=== PATIENT | male | born 1990 | race Hispanic/Latino ===

== ENCOUNTER → 2018-02-14 | Day surgery (SDC) | payer OTHER ==
[~2018-02-14] MED LIST: Bupivacaine HCl 0.5%/Epinephrine 1:200,000/PF 30 ml Vial ONE; Ciprofloxacin 0.2% Otic ONE; Dexamethasone 20 MG/5 ML VIAL ONE; Famotidine/PF 20 mg/2ml Vial ONE; Fentanyl 100 MCG/2 ML VIAL ONE; HYDROmorphone 0.5 MG/0.5 ML SYRINGE ONE; Ketorolac Tromethamine 30 MG/ML VIAL ONE; Lidocaine 1% PF 5 ML VIAL ONE; Midazolam HCl 2 mg/2 ml Vial ONE; Morphine 5 MG/ML SYRINGE ONE; Ondansetron HCl/PF 4 MG/2 ML Vial ONE; PROPOFOL 200 MG/20 ML VIAL ONE; Piperacillin/Tazobactam 4.5 GM VIAL ONE; Sodium Chloride 0.9% 100 ML ONE; Succinylcholine Chloride 20 MG/ML 10 ml SYRINGE FS ONE
[2018-02-14 15:34] LABS: #Basophils 0.1 thou/uL (0.0-0.2); #Lymphocytes 1.5 thou/uL (1.20-3.40); #Monocytes 0.9 thou/uL (0.11-0.59); #Neutrophils 13.9 thou/uL (1.40-6.50); %Basophils 0.4 % (0.0-1.0); %Eosinophils 0.1 % (0.0-10.0); %Lymphocytes 9.4 % (21.0-51.0); %Monocytes 5.4 % (0.0-10.0); %Neutrophils 84.8 % (42.0-75.0); Hemoglobin 15.3 g/dL (14.0-18.0); Mean Corpuscular HGB CONC 33.7 g/dL (32.0-36.0); Mean Corpuscular Hemoglobin 27.1 pg (27.0-31.0); Mean Corpuscular Volume 80.5 fL (78.0-98.0); Mean Platelet Volume 8.1 fL (7.4-10.4); Platelet Count 224 thou/uL (130-400); RBC Distribution Width 12.5 % (11.5-14.5); Red Blood Cell (RBC) Count 5.62 mill/uL (4.70-6.10); White Blood Cell (WBC) Count 16.3 thou/uL (4.8-10.8)
[2018-02-14 15:43] LABS: ALT (SGPT) 80 U/L (8-55); AST (SGOT) 36 U/L (5-34); Albumin 4.6 g/dL (3.5-5.0); Alkaline Phosphatase 103 U/L (40-150); Anion Gap 17 mmol/L (10-20); BUN (Urea Nitrogen) 12 mg/dL (8.9-20.6); Bilirubin, Total 0.5 mg/dL (0.2-1.2); Calc. Creatinine Clearance 0 mL/min (70-130); Calcium 9.4 mg/dL (7.8-10.44); Carbon Dioxide 19 mmol/L (22-29); Chloride 103 mmol/L (98-107); Estimated GFR-MDRD Greater than 90; Glucose 100 mg/dL (70-105); Lipase 17 U/L (8-78); Potassium 3.9 mmol/L (3.5-5.1); Protein, Total 7.6 g/dL (6.0-8.3); Sodium 135 mmol/L (136-145)
--- NOTE | 2018-02-14 16:18 | CT ---
CT ABDOMEN AND PELVIS WITH CONTRAST: Comparison: None. History: Lower abdominal pain that started this morning after eating. Technique: Multiple contiguous axial images were obtained in a CT of the abdomen and pelvis with cont rast. Coronal reformats were performed. FINDINGS: The liver, gallbladder, kidneys, adrenal glands, spleen and pancreas are unremarkable. No free air, f ree fluid, or stranding changes are seen in the abdomen or pelvis. The large and small bowel are unremarkable. The appendix is enlarged measuring 11 mm and there is str anding change adjacent to the tip of the appendix. These findings are consistent with early acute sissy endicitis. No free air or free fluid are seen in the abdomen or pelvis. There are a few mildly enlarg ed ileocecal lymph nodes. The small bowel and colon are unremarkable. No abdominal or pelvic lymphadenopathy are seen. The osseous structures, visualized inferior thorax a nd abdominal wall soft tissues are unremarkable. IMPRESSION: Acute appendicitis. POS: DOC
[2018-02-14 16:36] LABS: Bilirubin Negative (Negative); Blood, Urine Negative (Negative); Clarity Clear (Clear); Glucose, Urine (Dipstick) Negative (Negative); Leukocyte Negative (Negative); Nitrite Negative (Negative); Protein, Urine (Dipstick) Negative (Neg-Trace); Urobilinogen 0.2 mg/dL (0.2-1.0); pH, Urine 6.5 (5.0-9.0)
[2018-02-14 16:37] LABS: Specific Gravity, Urine 1.031 (1.002-1.036)
--- NOTE | 2018-02-15 04:42 | OP ---
PREOPERATIVE DIAGNOSIS: Acute appendicitis. POSTOPERATIVE DIAGNOSIS: Acute appendicitis. PROCEDURE PERFORMED: Laparoscopic video appendectomy. SURGEON: Mike Chapman M.D. ANESTHESIA: General. Local 0.5% Marcaine with epinephrine, 30 mL DESCRIPTION OF PROCEDURE: The patient was taken to the operating room where under general anesthesia , Charles catheter was placed at the beginning of the procedure and removed at the end. Abdomen clippe d of hair, prepared with ChloraPrep, draped in routine fashion. Local anesthetic infiltrated into sk in and subcutaneous tissue about each port site. Infraumbilical incision made. Pneumoperitoneum to 15 mmHg obtained with the Veress needle, replacing it with a 5-port laparoscope inserted. Suprapubic incision made and a 12-port placed. Right lateral subcostal incision made and a 5-port placed. Asaf endix was acutely inflamed and mesoappendix taken down the stump of the appendix divided with Endo-GI A blue load stapler. Stapled cecal stump was hemostatic and secure. Good hemostasis noted and obtai orestes with the LigaSure. Suprapubic fascia approximated with 0 Vicryl GraNee needle. Irrigant and pne umoperitoneum evacuated. All instruments removed and all skin incisions approximated with interrupte d subdermal 4-0 Monocryl and DermaGlue applied. The patient tolerated the procedure well.
== END ==
LOC: SCSER 14:50 → ERS 18:05
PROVIDERS: ATTEND Specialist
PROC: 0DTJ4ZZ Resection of Appendix, Percutaneous Endoscopic Approach (ICD-10-PCS; principal; 2018-02-14)
DX: K35.80 Unspecified acute appendicitis (principal)
CPT/HCPCS: 36415; 74177; 80053; 81003; 83690; 85025; 88304; 96361; 96374; 96375; J2270; J0131; J0670; J1100; J1170; J1885; J2001; J2250; J2405; J2543; J2704; J3010; J7050; S0028

== ENCOUNTER 2018-06-21 07:26 | Outpatient (CLI) | payer OTHER ==
--- NOTE | 2018-06-21 09:29 | ULT ---
SCROTAL ULTRASOUND INCLUDING COLOR AND SPECTRAL DOPPLER IMAGING: Date: 06/21/18 HISTORY: Achy, painful left testis for years, becoming worse and more frequent. FINDINGS: Right testis measures 4.5 x 3.2 x 2.4 cm. Left testis measures 4.4 x 3.1 x 2.2 cm. The epididymal reg ions are unremarkable. No hydrocele. Vascular duplex demonstrates arterial inflow and venous outflow. No evidence for ovarian torsion. IMPRESSION: Normal scrotal ultrasound. No intratesticular mass or evidence for hydrocele or torsion. POS: NICCI
== END 2018-06-21 07:27 | disposition home or self-care (01) ==
LOC: SCSULT 07:26
PROVIDERS: ATTEND Nurse Practitioner Family
DX: N50.82 Scrotal pain (principal)
CPT/HCPCS: 76870; 93976

== ENCOUNTER 2019-04-04 07:18 | Outpatient (CLI) | payer OTHER ==
--- NOTE | 2019-04-04 09:07 | ULT ---
ABDOMINAL ULTRASOUND HISTORY: Abnormal test results FINDINGS: Liver: Increased in echogenicity suggesting fatty infiltration. No focal hepatic lesion is seen. Gallbladder: No gallbladder calculi are visualized. There is no gallbladder wall thickening or perich olecystic fluid. Common duct: Common duct is normal in caliber measuring 0.2 cm in diameter. Pancreas: Mostly obscured by shadowing from bowel gas but where visualized demonstrates a grossly nor mal sonographic appearance. IVC: Limited visualized IVC has a normal sonographic appearance. Aorta: Not well assessed on this examination and mostly obscured by bowel gas. Spleen: Enlarged in craniocaudal dimensions measuring 14.3 cm. Kidneys: Kidneys demonstrate a normal sonographic appearance bilaterally with the right kidney measur ing 10.6 cm in length, and the left kidney measures 12.1 cm in length. IMPRESSION: 1. Fatty infiltration of the liver. 2. Mild splenomegaly. 3. No gallbladder calculi are seen, and the common duct is normal in caliber.
== END 2019-04-04 07:19 | disposition home or self-care (01) ==
LOC: ULT 07:18
PROVIDERS: ATTEND Internal Medicine
DX: R94.5 Abnormal results of liver function studies (principal); K76.0 Fatty (change of) liver, not elsewhere classified; R16.1 Splenomegaly, not elsewhere classified
CPT/HCPCS: 76700

== ENCOUNTER 2020-11-29 21:36 | Observation (INO) | payer OTHER ==
[~2020-11-29 21:36] MED LIST changes: -Bupivacaine HCl 0.5%/Epinephrine 1:200,000/PF 30 ml Vial ONE; -Ciprofloxacin 0.2% Otic ONE; -Dexamethasone 20 MG/5 ML VIAL ONE; -Famotidine/PF 20 mg/2ml Vial ONE; -Fentanyl 100 MCG/2 ML VIAL ONE; -HYDROmorphone 0.5 MG/0.5 ML SYRINGE ONE; +Iopamidol-370 76% 500 ML 1 ML ONE; -Ketorolac Tromethamine 30 MG/ML VIAL ONE; -Lidocaine 1% PF 5 ML VIAL ONE; -Midazolam HCl 2 mg/2 ml Vial ONE; -Morphine 5 MG/ML SYRINGE ONE; -Ondansetron HCl/PF 4 MG/2 ML Vial ONE; -PROPOFOL 200 MG/20 ML VIAL ONE; -Piperacillin/Tazobactam 4.5 GM VIAL ONE; -Sodium Chloride 0.9% 100 ML ONE; -Succinylcholine Chloride 20 MG/ML 10 ml SYRINGE FS ONE
[2020-11-29] MEDS ORDERED: Albuterol 200 PUFF (6.7GM INHALER) ONE (21:49)
[2020-11-29 22:08] LABS: #Basophils 0.1 thou/uL (0.0-0.2); #Eosinphils 0.1 thou/uL (0.0-0.7); #Lymphocytes 2.5 thou/uL (1.20-3.40); #Monocytes 0.9 thou/uL (0.11-0.59); #Neutrophils 10.5 thou/uL (1.40-6.50); %Basophils 0.5 % (0.0-1.0); %Eosinophils 0.6 % (0.0-10.0); %Lymphocytes 17.9 % (21.0-51.0); %Monocytes 6.3 % (0.0-10.0); %Neutrophils 74.8 % (42.0-75.0); Hemoglobin 14.8 g/dL (14.0-18.0); Mean Corpuscular HGB CONC 32.4 g/dL (32.0-36.0); Mean Corpuscular Hemoglobin 26.8 pg (27.0-31.0); Mean Corpuscular Volume 82.6 fL (78.0-98.0); Mean Platelet Volume 8.3 fL (7.4-10.4); Platelet Count 233 thou/uL (130-400); RBC Distribution Width 13.4 % (11.5-14.5); Red Blood Cell (RBC) Count 5.51 mill/uL (4.70-6.10)
[2020-11-29 22:32] LABS: ALT (SGPT) 136 U/L (8-55); AST (SGOT) 58 U/L (5-34); Albumin 4.6 g/dL (3.5-5.0); Alkaline Phosphatase 116 U/L (40-110); Anion Gap 15 mmol/L (10-20); BUN (Urea Nitrogen) 11 mg/dL (8.9-20.6); Bilirubin, Total 0.3 mg/dL (0.2-1.2); Calc. Creatinine Clearance 0 mL/min (70-130); Calcium 9.5 mg/dL (7.8-10.44); Carbon Dioxide 26 mmol/L (22-29); Chloride 101 mmol/L (98-107); Globulin 3.2 g/dL (2.4-3.5); Glucose 114 mg/dL (70-105); Lipase 20 U/L (8-78); Potassium 3.7 mmol/L (3.5-5.1); Protein, Total 7.8 g/dL (6.0-8.3); Sodium 138 mmol/L (136-145)
[2020-11-30 00:15] LABS: Bilirubin Negative (Negative); Blood, Urine Negative (Negative); Clarity Clear (Clear); Glucose, Urine (Dipstick) Normal (Negative); Ketone, Urine Negative (Negative); Leukocyte Negative Leu/uL (Negative); Nitrite Negative (Negative); Protein, Urine (Dipstick) Negative (Neg-Trace); Specific Gravity, Urine 1.023 (1.002-1.036); Urobilinogen Normal mg/dL (Less than 2); pH, Urine 7.5 (5.0-9.0)
[2020-11-30 00:26] LABS: SARS-CoV-2 NAA Rapid Test Not Detected (NotDetected)
[2020-11-30 02:06] LABS: Lactic Acid 2.3 mmol/L (0.5-2.2)
[2020-11-30] MEDS ORDERED: Famotidine 20 MG TAB PO SCH (02:08)
[2020-11-30 02:11] LABS: Troponin I Less than 0.010 ng/mL (< 0.028)
[2020-11-30] MEDS ORDERED: Lidocaine 2% Viscous Solution 10 ML, Aluminum & Magnesium Hydroxide 30 ML SSW SCH (02:30)
[2020-11-30] MEDS ORDERED: Lactated Ringer's 1,000 ML IV SCH (02:30)
[2020-11-30 03:11] LABS: Amphetamine Not Detected (NotDetected); Barbiturates Screen Not Detected (NotDetected); Benzodiazepine Screen Not Detected (NotDetected); Cocaine Metabolite Screen Not Detected (NotDetected); Medtox Control Line Valid? VALID (VALID); Medtox Reader # READER 4; Methadone Not Detected (NotDetected); Methamphetamine Not Detected (NotDetected); Opiate Screen Not Detected (NotDetected); Oxycodone Screen Not Detected (NotDetected); Phencyclidine (PCP) Not Detected (NotDetected); THC/Cannabinoid Screen Not Detected (NotDetected); Tricyclic Screen Not Detected (NotDetected)
[2020-11-30 03:31] LABS: Hemoglobin A1c 5.9 % (4.0-6.0)
[2020-11-30 04:50] LABS: Lactic Acid 1.8 mmol/L (0.5-2.2)
[2020-11-30 04:58] LABS: Troponin I Less than 0.010 ng/mL (< 0.028)
[2020-11-30] MEDS ORDERED: Pantoprazole 40 MG VIAL ONE (08:27)
[2020-11-30] MEDS ORDERED: Loratadine 10 MG TAB PO SCH (09:00)
[2020-11-30] MEDS ORDERED: Fluticasone Propionate Nasal Spray 16 gm Bottle NASAL SCH (09:00)
[2020-11-30] MEDS ORDERED: Pantoprazole 40 MG VIAL IVP SCH (09:00)
== END 2020-11-30 09:32 | disposition home or self-care (01) ==
LOC: ERS 21:36 → ERHOLD 11-30 00:48
PROVIDERS: ADMIT Internal Medicine; ATTEND Internal Medicine
DX: R07.89 Other chest pain (principal); R06.02 Shortness of breath; K21.9 Gastro-esophageal reflux disease without esophagitis; K76.0 Fatty (change of) liver, not elsewhere classified; J45.909 Unspecified asthma, uncomplicated; Z87.891 Personal history of nicotine dependence; Z91.018 Allergy to other foods
CPT/HCPCS: 36415; 71045; 71275; 80053; 80306; 81003; 83036; 83605; 83690; 83880; 84443; 84484; 85025; 85379; 87040; 87086; 87804; 93005; C9113; G0378; Q9967; U0002

== ENCOUNTER 2021-02-04 18:00 | Outpatient (CLI) | payer OTHER | END 2021-02-04 18:01 | disposition home or self-care (01) | LOC: SLEEPLAB 18:00 | PROVIDERS: ATTEND Nurse Practitioner Family | DX: G47.33 Obstructive sleep apnea (adult) (pediatric) (principal); R53.83 Other fatigue; R09.89 Other specified symptoms and signs involving the circulatory and respiratory systems; R51.9 Headache, unspecified; K21.9 Gastro-esophageal reflux disease without esophagitis; E66.9 Obesity, unspecified; F41.9 Anxiety disorder, unspecified; F32.9 Major depressive disorder, single episode, unspecified; G47.00 Insomnia, unspecified; R06.83 Snoring | CPT/HCPCS: 95806 ==